=== PATIENT | female | born 1965 | race Caucasian/White ===

== ENCOUNTER 2021-07-25 14:05 | Emergency (ER) | payer OTHER ==
[2021-07-25 14:27] VITALS: BMI 31.6
[2021-07-25] MEDS ORDERED: CASIRIVIMAB/IMDEVIMAB 10 ML in SODIUM CHLORIDE 100 ML IVPB ONE (14:59)
[2021-07-25 17:52] VITALS: BP 121/77; PULSE 77; TEMP 98.5
== END 2021-07-25 18:02 | disposition home or self-care (01) ==
LOC: JER 14:05 → JCOVINFU 14:05
DX: U07.1 COVID-19 (principal)
CPT/HCPCS: 99284-25; Q0240